=== PATIENT | male | born 1995 | race Hispanic/Latino ===

== ENCOUNTER 2016-10-07 22:39 | Emergency (ER) | payer OTHER ==
[2016-10-07] MEDS ORDERED: predniSONE 20 MG TAB As Ordered ONE (23:11)
[2016-10-07] MEDS ORDERED: diphenhydrAMINE 25 MG CAP As Ordered ONE (23:11)
--- NOTE | 2016-10-07 23:20 | EDDOCDS ---
Physician Documentation [facility] Name: Anton Aldridge Age: 20 yrs Sex: Male : 1995 Arrival Date: 10/07/2016 Time: 22:39 Bed 11 Private [facility] Disposition: 10/07/16 23:12 Discharged to Home/Self Care. Impression: Contact urticaria. - Condition is Stable. - Discharge Instructions: Contact Dermatitis, Hives. - Prescriptions for Zyrtec 10 mg Oral Tablet - take 1 tablet by ORAL route once daily As needed; 20 tablet. Prednisone 20 mg Oral Tablet - take 1 tablet by ORAL route as directed Day 1-3: 3 po, day 4-7: 2 po, day 8-10: 1 po; 20 tablet. - Medication Reconciliation, Local Pharmacy Hours form. - Follow up: [facility]; When: 4 - 5 days; Reason: Recheck today's complaints, Continuance of care. - Problem is an acute exacerbation. - Symptoms are unchanged. - Notes: cleanse all clothing with hypoallergenic soap Historical: - Allergies: No known drug Allergies; - Home Meds: 1. Benadryl 25 mg Oral cap (Last dose: 10/07/2016 21:00) - PMHx: none; - PSHx: none; - Social history: Smoking status: Patient uses tobacco products, light tobacco smoker. No barriers to communication noted, The patient speaks fluent Sinhala, Speaks appropriately for age. - Family history: Not pertinent. - : The pt / caregiver states he / she is not on anticoagulants. Home medication list is obtained from the patient. - Exposure Risk Screening:: None identified. Vital Signs: 10/07 22:41 BP 152 / 76; Pulse 114; Resp 18; Temp 98; Pulse Ox 97% ; Weight 79.38 kg / 175 lbs; jlm Height 5 ft. 10 in. (177.80 cm); Pain 0/10; 22:41 Body Mass Index 25.11 (79.38 kg, 177.80 cm) [facility] MDM: 23:07 predniSONE 60 mg PO once; administer with food or milk ordered. ke 23:07 diphenhydrAMINE 50 mg PO once ordered. ke Administered Medications: 23:14 Drug: predniSONE 60 mg [prednisone 20 mg tablet (3 tabs)] Route: PO; jone 23:14 Drug: diphenhydrAMINE 50 mg [diphenhydramine 25 mg capsule (2 caps)] Route: PO; jone Signatures: Vinnie Arvizu FNP FNP ke [place]mer[place], JenniferRN RN jo3 Willard Garica RN RN jmb MTDD
--- NOTE | 2016-10-07 23:20 | EDDOCDS ---
Nurse's Notes [facility] Name: Anton Aldridge Age: 20 yrs Sex: Male : 1995 Arrival Date: 10/07/2016 Time: 22:39 Bed 11 Private MD: NHNILESH RANDHAWA Diagnosis: Contact urticaria Presentation: 10/07 22:48 Presenting complaint: Patient states: Just started on a new laundry soap. started jo3 breaking out in rash yesterday. Itchy rash on back and ramone arms. Onset: The symptoms/episode began/occurred acutely, 1 day(s) ago. The patient has a history of a previous allergic reaction. similar to this one. Anaphylaxis evaluation, the patient reports or I have noted the following symptoms which indicate a significant risk of anaphylaxis: urticaria. Adult Sepsis Screening: The patient does not have new or worsening altered mentation. Patient's respiratory rate is less than 22. Systolic blood pressure is greater than 100. Patient has a qSOFA score of 0- Negative Sepsis Screen. Suicide/Homicide risk assessment- the patient denies having any suicidal and/or homicidal ideations and does not present with any other emotional, behavioral or mental health complaints. 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 Transition of care: patient was not received from another setting of care. 22:48 Acuity: RON Level 3 jo3 22:48 Method Of Arrival: Walkin/Carried/Asstd jo3 Triage Assessment: 22:51 General: Appears in no apparent distress, Behavior is appropriate for age, cooperative, jo3 pleasant. HIV screening NA for this visit Offered previously. Neurological: Level of Consciousness is awake, alert, Oriented to person, place, time. Respiratory: Airway is patent Respiratory effort is even, unlabored, Reports no respiratory complaints. Derm: urticaria noted to RAMONE arms in triage. Historical: - Allergies: No known drug Allergies; - Home Meds: 1. Benadryl 25 mg Oral cap (Last dose: 10/07/2016 21:00) - PMHx: none; - PSHx: none; - Social history: Smoking status: Patient uses tobacco products, light tobacco smoker. No barriers to communication noted, The patient speaks fluent Puerto Rican, Speaks appropriately for age. - Family history: Not pertinent. - : The pt / caregiver states he / she is not on anticoagulants. Home medication list is obtained from the patient. - Exposure Risk Screening:: None identified. Screenin:07 Screening information is obtained from the patient. Fall risk: No risks identified. jmb Assistance ADL's: requires no assistance with activities of daily living. Abuse/DV Screen: The patient / caregiver reports he/she is: not in a situation that causes fear, pain or injury. Nutritional screening: No deficits noted. Advance Directives: Currently, there is no health care proxy. There is no active DNR order. There is no living will. There is no Power of Concrete Block Plant Supervisor. home support is adequate. Assessment: 23:07 General: Appears in no apparent distress, comfortable, Behavior is appropriate for age, jmb cooperative. Pain: Denies pain. Neurological: Level of Consciousness is awake, alert, obeys commands, Oriented to person, place, time, Foundry Worker are equal bilaterally Speech is normal, Facial symmetry appears normal, Facial symmetry: tongue is midline. Cardiovascular: Capillary refill < 3 seconds Heart tones S1 S2 present Pulses are all present. Rhythm is regular. Respiratory: Airway is patent Respiratory effort is even, unlabored, Respiratory pattern is regular, symmetrical, Breath sounds are clear bilaterally. GI: Abdomen is flat, non- distended. Derm: Skin is pink, warm & dry. Rash noted that is red, raised. Musculoskeletal: Range of motion intact in all extremities. 23:18 General: Patient instructed on discharge instructions. Patient asked if there were any [facility] questions regarding discharge, patient stated no. Patient signed discharge instructions. Patient discharged in stable condition. . Vital Signs: 22:41 BP 152 / 76; Pulse 114; Resp 18; Temp 98; Pulse Ox 97% ; Weight 79.38 kg; Height 5 ft. jlm 10 in. (177.80 cm); Pain 0/10; 22:41 Body Mass Index 25.11 (79.38 kg, 177.80 cm) [facility] Vitals: 22:41 Log In Time: October 07, 2016 at 22:41. [facility] 22:43 RN notified that patient meets Red Flag criteria. [facility] ED Course: 22:40 Patient visited by Luz Vivas, Helpdesk Analyst. [facility] 22:40 Patient moved to Waiting [facility] 22:41 PSYCHIATRIC, NILESH VELEZ is Private Physician. jlm 22:42 Patient moved to Pre RCE jlm 22:50 Triage Initiated jo3 22:52 Patient visited by Marilyn Cardona RN. jo3 23:03 Patient moved to 11 jo3 23:05 Vinnie Arvizu FNP is [facility]. ke 23:05 Patient visited by Vinnie Arvizu FNP. ke 23:06 Patient visited by Vinnie Arvizu FNP. ke 23:07 The patient / caregiver is instructed regarding the plan of care and ED course. jmb 23:07 No IV's were initiated during this patient's visit. No procedures done that require jmb assistance. 23:08 Patient visited by Willard Garcia RN. heidyb 23:11 PSYCHIATRIC, NILESH VELEZ is Referral Physician. ke Administered Medications: 23:14 Drug: predniSONE 60 mg [prednisone 20 mg tablet (3 tabs)] Route: PO; jmb 23:14 Drug: diphenhydrAMINE 50 mg [diphenhydramine 25 mg capsule (2 caps)] Route: PO; jmb Order Results: There are currently no results for this order. Outcome: 23:12 Discharge ordered by Provider. ke 23:18 Discharge Assessment: Patient awake, alert and oriented x 3. No cognitive and/or jmb functional deficits noted. Patient verbalized understanding of disposition instructions. Patient awake and alert. obeys commands, Oriented to person, place and time. Patient verbalized understanding of disposition instructions. Patient has no functional deficits. patient administered narcotics - no. The following High Risk Discharge criteria are identified: None. Discharged to home ambulatory, with significant other. Condition: stable Condition: improved. Discharge instructions given to patient, Instructed on discharge instructions, follow up and referral plans. medication usage, Demonstrated understanding of instructions, medications, Pt was receptive of discharge instructions/ teaching. Prescriptions given X 2. No special radiology studies were completed. Property sent home with patient. 23:20 Patient left the ED. b Signatures: Vinnie Arvizu FNP FNP ke [place], Jennifer,Willard Wolf RN,Luz Alexander RN, Helpdesk Analyst Unit [facility] MTDD
--- NOTE | 2016-10-10 00:21 | EDDOCDS ---
Nurse's Notes [facility] Name: Anton Aldridge Age: 20 yrs Sex: Male : 1995 Arrival Date: 10/07/2016 Time: 22:39 Bed 11 Private MD: KYNILESH RANDHAWA Diagnosis: Contact urticaria Presentation: 10/07 22:48 Presenting complaint: Patient states: Just started on a new laundry soap. started jo3 breaking out in rash yesterday. Itchy rash on back and ramone arms. Onset: The symptoms/episode began/occurred acutely, 1 day(s) ago. The patient has a history of a previous allergic reaction. similar to this one. Anaphylaxis evaluation, the patient reports or I have noted the following symptoms which indicate a significant risk of anaphylaxis: urticaria. Adult Sepsis Screening: The patient does not have new or worsening altered mentation. Patient's respiratory rate is less than 22. Systolic blood pressure is greater than 100. Patient has a qSOFA score of 0- Negative Sepsis Screen. Suicide/Homicide risk assessment- the patient denies having any suicidal and/or homicidal ideations and does not present with any other emotional, behavioral or mental health complaints. 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 Transition of care: patient was not received from another setting of care. 22:48 Acuity: RON Level 3 jo3 22:48 Method Of Arrival: Walkin/Carried/Asstd jo3 Triage Assessment: 22:51 General: Appears in no apparent distress, Behavior is appropriate for age, cooperative, jo3 pleasant. HIV screening NA for this visit Offered previously. Neurological: Level of Consciousness is awake, alert, Oriented to person, place, time. Respiratory: Airway is patent Respiratory effort is even, unlabored, Reports no respiratory complaints. Derm: urticaria noted to RAMONE arms in triage. Historical: - Allergies: No known drug Allergies; - Home Meds: 1. Benadryl 25 mg Oral cap (Last dose: 10/07/2016 21:00) - PMHx: none; - PSHx: none; - Social history: Smoking status: Patient uses tobacco products, light tobacco smoker. No barriers to communication noted, The patient speaks fluent Nigerien, Speaks appropriately for age. - Family history: Not pertinent. - : The pt / caregiver states he / she is not on anticoagulants. Home medication list is obtained from the patient. - Exposure Risk Screening:: None identified. Screenin:07 Screening information is obtained from the patient. Fall risk: No risks identified. jmb Assistance ADL's: requires no assistance with activities of daily living. Abuse/DV Screen: The patient / caregiver reports he/she is: not in a situation that causes fear, pain or injury. Nutritional screening: No deficits noted. Advance Directives: Currently, there is no health care proxy. There is no active DNR order. There is no living will. There is no Power of Ship Fitter. home support is adequate. Assessment: 23:07 General: Appears in no apparent distress, comfortable, Behavior is appropriate for age, jmb cooperative. Pain: Denies pain. Neurological: Level of Consciousness is awake, alert, obeys commands, Oriented to person, place, time, Reinforcing Steel Placer are equal bilaterally Speech is normal, Facial symmetry appears normal, Facial symmetry: tongue is midline. Cardiovascular: Capillary refill < 3 seconds Heart tones S1 S2 present Pulses are all present. Rhythm is regular. Respiratory: Airway is patent Respiratory effort is even, unlabored, Respiratory pattern is regular, symmetrical, Breath sounds are clear bilaterally. GI: Abdomen is flat, non- distended. Derm: Skin is pink, warm & dry. Rash noted that is red, raised. Musculoskeletal: Range of motion intact in all extremities. 23:18 General: Patient instructed on discharge instructions. Patient asked if there were any [facility] questions regarding discharge, patient stated no. Patient signed discharge instructions. Patient discharged in stable condition. . Vital Signs: 22:41 BP 152 / 76; Pulse 114; Resp 18; Temp 98; Pulse Ox 97% ; Weight 79.38 kg; Height 5 ft. jlm 10 in. (177.80 cm); Pain 0/10; 22:41 Body Mass Index 25.11 (79.38 kg, 177.80 cm) [facility] Vitals: 22:41 Log In Time: October 07, 2016 at 22:41. [facility] 22:43 RN notified that patient meets Red Flag criteria. [facility] ED Course: 22:40 Patient visited by Luz Vivas, Validation Technician. [facility] 22:40 Patient moved to Waiting [facility] 22:41 [facility], NILESH VELEZ is Private Physician. jlm 22:42 Patient moved to Pre RCE jlm 22:50 Triage Initiated jo3 22:52 Patient visited by Marilyn Cardona RN. jo3 23:03 Patient moved to 11 jo3 23:05 [facility]. ke 23:05 Patient visited by Vinnie Arvizu FNP. ke 23:06 Patient visited by Vinnie Arvizu FNP. ke 23:07 The patient / caregiver is instructed regarding the plan of care and ED course. jmb 23:07 No IV's were initiated during this patient's visit. No procedures done that require jmb assistance. 23:08 Patient visited by Willard Garcia RN. jone 23:11 [facility], NILESH VELEZ is Referral Physician. ke 10/08 07:36 [facility] Payment Agreement was scanned into [employer] and attached to record. hs2 07:39 Patient name changed from Anton\S\\S\Whitaker-Hankins\S\ to Anton\S\ \S\Whitaker-Hankins. EDMS 09:00 T-Sheet-- Draft Copy was scanned into [employer] and attached to record. [facility] Administered Medications: 10/07 23:14 Drug: predniSONE 60 mg [prednisone 20 mg tablet (3 tabs)] Route: PO; jmb 23:14 Drug: diphenhydrAMINE 50 mg [diphenhydramine 25 mg capsule (2 caps)] Route: PO; jmb Order Results: There are currently no results for this order. Outcome: 23:12 Discharge ordered by Provider. ke 23:18 Discharge Assessment: Patient awake, alert and oriented x 3. No cognitive and/or jmb functional deficits noted. Patient verbalized understanding of disposition instructions. Patient awake and alert. obeys commands, Oriented to person, place and time. Patient verbalized understanding of disposition instructions. Patient has no functional deficits. patient administered narcotics - no. The following High Risk Discharge criteria are identified: None. Discharged to home ambulatory, with significant other. Condition: stable Condition: improved. Discharge instructions given to patient, Instructed on discharge instructions, follow up and referral plans. medication usage, Demonstrated understanding of instructions, medications, Pt was receptive of discharge instructions/ teaching. Prescriptions given X 2. No special radiology studies were completed. Property sent home with patient. 23:20 Patient left the ED. jmb Signatures: Dispatcher [employer] Vinnie Willett, AUDIO PRODUCTION INSTRUCTOR AUDIO PRODUCTION INSTRUCTOR Marilyn Davalos,RN RN Willard Gallegos,CARLA RN Luz Burden, Validation Technician Unit Mary Albarran, Reg Reg hs2 Domoniquecielo, Karuna phillips Chart Complete MTDD
--- NOTE | 2016-10-10 00:21 | EDDOCDS ---
Physician Documentation [facility] Name: Anotn Aldridge Age: 20 yrs Sex: Male : 1995 Arrival Date: 10/07/2016 Time: 22:39 Bed 11 Private MD: [facility] Disposition: 10/07/16 23:12 Discharged to Home/Self Care. Impression: Contact urticaria. - Condition is Stable. - Discharge Instructions: Contact Dermatitis, Hives. - Prescriptions for Zyrtec 10 mg Oral Tablet - take 1 tablet by ORAL route once daily As needed; 20 tablet. Prednisone 20 mg Oral Tablet - take 1 tablet by ORAL route as directed Day 1-3: 3 po, day 4-7: 2 po, day 8-10: 1 po; 20 tablet. - Medication Reconciliation, Local Pharmacy Hours form. - Follow up: [facility]; When: 4 - 5 days; Reason: Recheck today's complaints, Continuance of care. - Problem is an acute exacerbation. - Symptoms are unchanged. - Notes: cleanse all clothing with hypoallergenic soap Historical: - Allergies: No known drug Allergies; - Home Meds: 1. Benadryl 25 mg Oral cap (Last dose: 10/07/2016 21:00) - PMHx: none; - PSHx: none; - Social history: Smoking status: Patient uses tobacco products, light tobacco smoker. No barriers to communication noted, The patient speaks fluent Syriac, Speaks appropriately for age. - Family history: Not pertinent. - : The pt / caregiver states he / she is not on anticoagulants. Home medication list is obtained from the patient. - Exposure Risk Screening:: None identified. Vital Signs: 10/07 22:41 BP 152 / 76; Pulse 114; Resp 18; Temp 98; Pulse Ox 97% ; Weight 79.38 kg / 175 lbs; jlm Height 5 ft. 10 in. (177.80 cm); Pain 0/10; 22:41 Body Mass Index 25.11 (79.38 kg, 177.80 cm) jl MDM: 23:07 predniSONE 60 mg PO once; administer with food or milk ordered. andreia 23:07 diphenhydrAMINE 50 mg PO once ordered. andreia 10/08 07:36 [facility] Payment Agreement was scanned into [employer] and attached to record. hs2 09:00 T-Sheet-- Draft Copy was scanned into [employer] and attached to record. [facility] Administered Medications: 10/07 23:14 Drug: predniSONE 60 mg [prednisone 20 mg tablet (3 tabs)] Route: PO; jone 23:14 Drug: diphenhydrAMINE 50 mg [diphenhydramine 25 mg capsule (2 caps)] Route: PO; jone Signatures: Vinnie Arvizu FNP FNP ke [place], Jennifer, RN RN Willard Gallegos RN RN heidyb Mary [place], Reg Reg hs2 Karuna Puri [facility] The chart was reviewed and I authenticate all verbal orders and agree with the evaluation and treatment provided.Attachments: 10/08 07:36 [facility] Payment Agreement hs2 09:00 T-Sheet-- Draft Copy [facility] Chart Complete MTDD
--- NOTE | 2016-10-10 00:21 | EDDOCDS ---
Physician Documentation [facility] Name: Anton Aldridge Age: 20 yrs Sex: Male : 1995 Arrival Date: 10/07/2016 Time: 22:39 Bed 11 Private MD: [facility] Disposition: 10/07/16 23:12 Discharged to Home/Self Care. Impression: Contact urticaria. - Condition is Stable. - Discharge Instructions: Contact Dermatitis, Hives. - Prescriptions for Zyrtec 10 mg Oral Tablet - take 1 tablet by ORAL route once daily As needed; 20 tablet. Prednisone 20 mg Oral Tablet - take 1 tablet by ORAL route as directed Day 1-3: 3 po, day 4-7: 2 po, day 8-10: 1 po; 20 tablet. - Medication Reconciliation, Local Pharmacy Hours form. - Follow up: [facility]; When: 4 - 5 days; Reason: Recheck today's complaints, Continuance of care. - Problem is an acute exacerbation. - Symptoms are unchanged. - Notes: cleanse all clothing with hypoallergenic soap Historical: - Allergies: No known drug Allergies; - Home Meds: 1. Benadryl 25 mg Oral cap (Last dose: 10/07/2016 21:00) - PMHx: none; - PSHx: none; - Social history: Smoking status: Patient uses tobacco products, light tobacco smoker. No barriers to communication noted, The patient speaks fluent Wolof, Speaks appropriately for age. - Family history: Not pertinent. - : The pt / caregiver states he / she is not on anticoagulants. Home medication list is obtained from the patient. - Exposure Risk Screening:: None identified. Vital Signs: 10/07 22:41 BP 152 / 76; Pulse 114; Resp 18; Temp 98; Pulse Ox 97% ; Weight 79.38 kg / 175 lbs; jlm Height 5 ft. 10 in. (177.80 cm); Pain 0/10; 22:41 Body Mass Index 25.11 (79.38 kg, 177.80 cm) jl MDM: 23:07 predniSONE 60 mg PO once; administer with food or milk ordered. andreia 23:07 diphenhydrAMINE 50 mg PO once ordered. andreia 10/08 07:36 [facility] [place] Agreement was scanned into [employer] and attached to record. hs2 09:00 T-Sheet-- Draft Copy was scanned into [employer] and attached to record. [facility] Administered Medications: 10/07 23:14 Drug: predniSONE 60 mg [prednisone 20 mg tablet (3 tabs)] Route: PO; jone 23:14 Drug: diphenhydrAMINE 50 mg [diphenhydramine 25 mg capsule (2 caps)] Route: PO; jone Signatures: Vinnie Arvizu FNP FNP ke [place], Jennifer, RN RN Willard Gallegos RN RN heidyb [place], Reg Reg hs2 Karuna Puri [facility] The chart was reviewed and I authenticate all verbal orders and agree with the evaluation and treatment provided.Attachments: 10/08 07:36 [facility] Payment Agreement hs2 09:00 T-Sheet-- Draft Copy [facility] Chart Complete MTDD
== END 2016-10-07 23:20 | disposition home or self-care (01) ==
LOC: M ED 22:39
DX: L24.0 Irritant contact dermatitis due to detergents (principal); F17.210 Nicotine dependence, cigarettes, uncomplicated